=== PATIENT | male | born 1995 | race African-American/Black ===

== ENCOUNTER 2016-08-02 10:03 | Emergency (ER) | payer SELFPAY ==
[~2016-08-02] VITALS: Ht 188 cm; Wt 78.0 kg
[~2016-08-02 10:03] MED LIST: LEVA500T PO
[2016-08-02 10:05] VITALS: BP 137/76; PULSE 84; RESP 20; TEMP 98.9; O2SAT 99
--- NOTE | 2016-08-02 10:13 | PD ---
HPI . left sided buttocks boil/abscess for 1-1.5 weeks Chief Complaint: Lump, Cyst, Hernia Time Seen by Provider: 10:13 Travel History International Travel<30 days: No Contact w/Intl Traveler<30days: No Traveled to known affect area: No History of Present Illness HPI 21-year-old male with history of well-controlled asthma here with complaints of possible boil/abscess to his left buttocks for the past 1-1.5 weeks. Patient says that this area tends to get swollen and will drain some purulent fluid. Then it will go down and become hardened. He says that on July 23, 2016 he had chills. Since then he's had no fever or chills. He tells me that most recently the area appears to be flat. He decided to come in for further evaluation because it has been going on for quite some time without any resolution. He denies any trauma to the area. PFSH Past Medical History Asthma: Yes Cancer: No COPD: No Diabetes: No Endocrine: No Genitourinary: No Immune Disorder: No Musculoskeletal: No Neurologic: No Psychiatric: No Reproductive: No Respiratory: Yes Sleep Apnea: No Thyroid Disease: No Social History Alcohol Use: Yes Tobacco Use: No Substance Use: No Allergies-Medications (Allergen,Severity, Reaction): Coded Allergies: No Known Allergies (Unverified , 04/15/15) Reported Meds & Prescriptions Reported Meds & Active Scripts Active Bactrim DS (Sulfamethoxazole-Trimethoprim) 800-160 Mg Tab 1 Tab PO BID Review of Systems General / Constitutional: No: Fever Eyes: No: Visual changes HENT: No: Headaches Cardiovascular: No: Chest Pain or Discomfort Respiratory: No: Shortness of Breath Gastrointestinal: No: Abdominal Pain Genitourinary: No: Dysuria Musculoskeletal: No: Pain Skin: Positive Other (left buttocks boil), No Rash Neurologic: No: Weakness Psychiatric: No: Depression Endocrine: No: Polydipsia Hematologic/Lymphatic: No: Easy Bruising Physical Exam Narrative GENERAL: AAO x 3, no acute distress, Well-nourished, well-developed patient. SKIN: Warm and dry. No visible rashes or bruising. HEAD: Normocephalic and atraumatic. EYES: No scleral icterus. No injection or drainage. ENT: No nasal drainage noted. Mucous membranes pink. Airway patent. NECK: Supple, trachea midline. No JVD. CARDIOVASCULAR: Regular rate and rhythm without murmurs, gallops, or rubs. RESPIRATORY: Breath sounds equal bilaterally. No accessory muscle use. No rhonchi or rales. GASTROINTESTINAL: visual inspection normal. RECTAL: left buttocks with small area of cellulitis approximately marco antonio sized, no induration or fluid collection ([facility] tech present) EXTREMITIES: No cyanosis or edema. BACK: Nontender without obvious deformity. No CVA tenderness. PSYCH: AAO x 3, normal affect. Data Data Last Documented VS Vital Signs Date Time Temp Pulse Resp B/P Pulse Ox O2 Delivery O2 Flow Rate FiO2 08/02/16 10:05 98.9 84 20 137/76 99 Room Air [facility] Medical Decision Making Medical Screen Exam Complete: Yes Emergency Medical Condition: Yes Medical Record Reviewed: Yes Differential Diagnosis cellulitis, less likely abscess, less likely pilonidal cyst Narrative Course This is a 21-year-old male here with complaints of a possible buttocks abscess. Examination was done and reveals a small area of cellulitis. There is no definitive abscess formation. There is no induration. I discussed with the patient and explained there is nothing for incision and drainage. I will treat him with antibiotics to cover for MRSA. Recommend follow-up with outpatient primary care provider for further recommendations and treatment. Patient verbalized understanding of instructions, questions were answered, and thanked me for their care. I advised them if their condition worsens, please return to the nearest emergency room for further care. Diagnosis Primary Impression: Cellulitis of buttock, left Patient Instructions: General Instructions Additional Instructions: [place] for worsening signs of infection which include fever, increased redness , increased warmth, purulent drainage, increased swelling or streaking. If any of these develop, please go to the nearest emergency room. Wash this area with soap and water at least 1-2 times a day. As we discussed, you will need to follow-up with her primary care provider for further recommendations and referrals. Med/Other Pt SpecificInfo: Prescription(s) given Scripts Sulfamethoxazole-Trimethoprim (Bactrim DS)800-160 Mg Tab1 Tab PO BID #20 TAB Prov:Ziggy Wagner MD 08/02/16 Disposition: 01 DISCHARGE HOME Condition: Stable Harini Barger August 02, 2016 10:13
[2016-08-02] MEDS ORDERED: BACT800T5 PO (10:14)
== END 2016-08-02 10:32 | disposition home or self-care (01) ==
LOC: NEPK 10:03
DX: L03.317 Cellulitis of buttock (principal)
CPT/HCPCS: 99283